=== PATIENT | male | born 1975 | race Caucasian/White ===

== ENCOUNTER 2020-10-27 08:38 | Day surgery (SDC) | payer OTHER ==
[2020-10-26 09:47] VITALS: BMI 31.0
[~2020-10-27 08:38] MED LIST: LACTATED RINGERS 1,000 ML IV SCH; LIDOCAINE 1% (10MG/ML) FOR IV START INTRADERMA PRN
[2020-10-27 09:12] VITALS: TEMP 97.8
[2020-10-27] MEDS ORDERED: LIDOCAINE 1% INJ 10MG/ML (20 ML MDV) ONE (09:30)
[2020-10-27] MEDS ORDERED: PROPOFOL 10 MG/ML 20 ML VIAL IV ONE (09:30)
--- NOTE | 2020-10-27 09:32 | P.GSHP ---
History of Present Illness H&P Date: 10/27/20 Patient is here today for upper and lower endoscopy. Patient has had complaints of reflux and recent rectal bleeding. No family history of colon cancer. No abdominal pain. No dysphagia. Symptoms have improved after starting Pepcid. Past Medical History Past Medical History: Hyperlipidemia Additional Past Medical History / Comment(s): BLOOD IN STOOL History of Any Multi-Drug Resistant Organisms: None Reported Past Surgical History: No Surgical Hx Reported Past Anesthesia/Blood Transfusion Reactions: No Reported Reaction Past Psychological History: No Psychological Hx Reported Smoking Status: Current every day smoker Past Alcohol Use History: Occasional Additional Past Alcohol Use History / Comment(s): STARTED SMOKING AT AGE 17 SMOKES . DRINKS MORE THAN 14 DRINKS ON THE WEEKEND Past Drug Use History: Marijuana Additional Drug Use History / Comment(s): DAILY - INSTRUCTED TO REFRAIN 24 HOURS PRIOR - Past Family History Mother Family Medical History: No Reported History Medications and Allergies Home Medications Medication Instructions Recorded Confirmed Type Famotidine [Pepcid] 20 mg PO DAILY 10/26/20 10/26/20 History Multivitamins, Thera [Multivitamin 1 tab PO DAILY 10/26/20 10/26/20 History (formulary)] Allergies Allergy/AdvReac Type Severity Reaction Status Date / Time No Known Allergies Allergy Verified 10/26/20 08:31 Surgical - Exam Vital Signs Temp Pulse Resp BP Pulse Ox 97.8 F 72 20 151/89 99 10/27/20 09:11 10/27/20 09:11 10/27/20 09:11 10/27/20 09:11 10/27/20 09:11 Physical exam: General: Well-developed, well-nourished HEENT: Normocephalic, sclerae nonicteric Abdomen: Nontender, nondistended Extremities: No edema Neuro: Alert and oriented Assessment and Plan (1) Rectal bleed Narrative/Plan: Will proceed with upper and lower endoscopy Current Visit: Yes Status: Acute Code(s): K62.5 - HEMORRHAGE OF ANUS AND RECTUM SNOMED Code(s): 91200452
--- NOTE | 2020-10-27 09:52 | P.PCN ---
Date of Procedure: 10/27/20 Procedure(s) Performed: PREOPERATIVE DIAGNOSIS: GERD, rectal bleeding POSTOPERATIVE DIAGNOSIS: Gastritis, moderate sized hiatal hernia, distal esophagitis, poor colonic prep, hemorrhoids PROCEDURE: 1. EGD with biopsy 2. Colonoscopy ANESTHESIA: MAC SURGEON: Arnaldo Reyes M.D. SPECIMENS: Antrum, GE junction ENDOSCOPIC PROCEDURE: The patient was on the endoscopy table in the left decubitus position. The Olympus gastroscope was inserted into the oropharynx and passed under direct visualization to the region of the third portion of the duodenum. From that point the scope was slowly withdrawn inspecting all surfaces carefully. There were no neoplastic inflammatory or polypoid lesions throughout the duodenum. The pylorus was widely patent. The stomach was carefully inspected. There was mild gastritis present. A biopsy of the antrum took place to rule out H. pylori. Retroflexion revealed a moderate sized hiatal hernia. The GE junction was present 3-4 cm above the diaphragmatic hiatus. At the GE junction there was a single linear erosion the measured 1.5 cm in length. A biopsy took place. The remainder the esophagus appeared normal. The patient was kept on the endoscopy table in the left decubitus position. The Olympus colonoscope was inserted into the anus and passed under direct visualization to the base of the cecum. The appendiceal orifice was visualized. From that point the scope was slowly withdrawn inspecting all surfaces carefully. There were no neoplastic inflammatory or polypoid lesions throughout the cecum, ascending, transverse, descending, sigmoid and rectum. There was no visible diverticulosis noted. Digital rectal examination revealed internal and external hemorrhoids without any evidence of recent or active bleeding. The patient's prep overall was somewhat suboptimal with retained stool seen scattered throughout. The patient was taken to the recovery room in stable condition per anesthesia guidelines. RECOMMENDATIONS: Resume diet. Continue antiacid therapy. Await biopsies.
[2020-10-27 09:55] VITALS: RESP 18
[2020-10-27 10:13] VITALS: BP 145/85; PULSE 82
== END 2020-10-27 10:35 | disposition home or self-care (01) ==
LOC: ORWHC2ENDO 08:38
PROVIDERS: ATTEND Surgery
DX: K29.50 Unspecified chronic gastritis without bleeding (principal); K20.0 Eosinophilic esophagitis; K44.9 Diaphragmatic hernia without obstruction or gangrene; K64.4 Residual hemorrhoidal skin tags; K64.8 Other hemorrhoids; E78.5 Hyperlipidemia, unspecified; F17.210 Nicotine dependence, cigarettes, uncomplicated; Z79.899 Other long term (current) drug therapy
CPT/HCPCS: 88305; 45378; 43239; J2001; J2704